=== PATIENT | female | born 1985 | race American Indian/Alaskan Native ===

== ENCOUNTER 2017-05-28 20:26 | Emergency (ER) | payer SELFPAY ==
[2017-05-28 23:09] VITALS: BP 122/88
[2017-05-28] MEDS ORDERED: VALIUM PO ONE (23:20)
[2017-05-28] MEDS ORDERED: ZOFRAN ODT PO ONE (23:20)
--- NOTE | 2017-05-28 23:24 | Emergency Department Report ---
Chief Complaint: Abdominal Pain Stated Complaint: N/V; ABD PAIN - HPI History of Present Illness: 31-year-old female past medical history possible diabetes, peripheral neuropathy , hypertension, alcohol abuse, alcohol withdrawal presents with complaint of shakiness and jittery sensation. Patient also complaining of chest pain with intermittent abdominal pain and nausea for the last 3 days. Last alcoholic beverage was this morning. Patient awake alert and oriented 3. States she came in because she could not control the nausea. - ROS Review of Systems: 3 days of nausea vomiting chest pain and hand shaking - Exam Vital Signs: Vital Signs 05/28/17 22:58 Temperature 98.6 F Pulse Rate 127 H Respiratory 18 Rate Blood Pressure 122/88 [Left] Physical Exam: Heart tachycardic, patient awake alert and oriented 3 MSE screening note: Focused history and physical exam performed. Due to findings the following was ordered: Screening Assessment/Plan/Differential Dx: Cardiac, abdominal pain, chest pain, possible alcohol withdrawal 1- This initial assessment/diagnostic orders/clinical plan/ treatment(s) is/are subject to change based on pt's health status, clinical progression and re- assessment by fellow clinical providers in the ED. Further treatment and workup at subsequent clinical provers discretion. Patient/guardians urged not to elope from ED as their condition may be serious if not clinically assessed and managed. 2-abdominal labs, ETOH, urinalysis, EKG, chest x-ray, urine drugs 3-I informed charge nurse Ms Mandujano of my concern that the patient may be withdrawing from alcohol to try to get pt into exam room quicker 4-Zofran and dose of Valium ED Disposition for MSE Condition: Stable Instructions: Abdominal Pain (ED)
[2017-05-28 23:55] LABS: Basophils % (Auto) 0.6 % (0.0-1.8); Eosinophils # (Auto) 0.1 K/mm3 (0.0-0.4); Eosinophils % (Auto) 1.4 % (0.0-4.3); Hematocrit 41.6 % (30.3-42.9); Hemoglobin 13.8 gm/dl (10.1-14.3); Lymphocytes # (Auto) 1.5 K/mm3 (1.2-5.4); Lymphocytes % (Auto) 30.4 % (13.4-35.0); Mean Corpuscular HGB Conc 33 % (30-34); Mean Corpuscular Hemoglobin 32 pg (28-32); Mean Corpuscular Volume 97 fl (79-97); Monocytes # (Auto) 0.3 K/mm3 (0.0-0.8); Monocytes % (Auto) 5.8 % (0.0-7.3); Platelet Count 133 K/mm3 (140-440); Red Blood Count 4.31 M/mm3 (3.65-5.03); Red Cell Distribution Width 18.9 % (13.2-15.2)
--- NOTE | 2017-05-29 00:16 | XRay Report ---
FINAL REPORT PROCEDURE: XR CHEST ROUTINE 2V TECHNIQUE: PA and lateral chest radiographs were obtained. CPT 93390 HISTORY: chest pain COMPARISON: No prior studies are available for comparison. FINDINGS: Heart: Normal. Mediastinum/Vessels: Normal. Lungs/Pleural space: Normal. Bony thorax: No acute osseous abnormality. Other: IMPRESSION: Negative examination.
[2017-05-29 00:19] LABS: BUN/Creatinine Ratio 9; Blood Urea Nitrogen 6 mg/dL (7-17); Calcium 9.3 mg/dL (8.4-10.2); Hemolysis Index 7; Lipase 59 units/L (13-60)
[2017-05-29 00:47] LABS: Bacteria,Urine 1+ /HPF (Negative); Bilirubin,Urine NEG (Negative); Blood,Urine LG (Negative); Calcium Oxalate Crystals,Urine 1+; Color,Urine Amber (Yellow); Mucus,Urine 3+ /HPF; Nitrite,Urine NEG (Negative)
[2017-05-29] MEDS ORDERED: NACL 0.9% 1000 ML 2,000 ML IV ONE (02:04)
[2017-05-29] MEDS ORDERED: ATIVAN IV ONE (02:04)
[2017-05-29] MEDS ORDERED: TORADOL IV ONE (03:32)
[2017-05-29] MEDS ORDERED: KEFLEX PO ONE (03:33)
--- NOTE | 2017-05-29 03:36 | Emergency Department Report ---
HPI - General Chief Complaint: Abdominal Pain Time Seen by Provider: 05/29/17 02:01 - HPI HPI: The patient is a 31-year-old female presents for evaluation of abdominal pain. The patient reports 2 days of abdominal pain, crampy in quality, concentrated to the lower abdomen, 8/10 in severity, exacerbated with movement. She also complains of nausea and nonbilious, nonbloody emesis, generalized myalgias, intermittent dizziness, and a nonproductive cough also for the past 2-3 days. The patient denies chest pain, dyspnea, syncope, diarrhea, blood in the stool, dark tarry stool, dysuria, hematuria, flank pain, genital discharge, inability to pass flatus. ED Past Medical Hx - Past Medical History Hx Hypertension: Yes Hx Congestive Heart Failure: No Hx Diabetes: No Hx Deep Vein Thrombosis: No Hx Renal Disease: No Hx Sickle Cell Disease: No Hx Seizures: No Hx Asthma: No Hx COPD: No Hx HIV: No - Surgical History Past Surgical History?: No - Social History Smoking Status: Never Smoker Substance Use Type: Alcohol - Medications Home Medications: Home Medications Medication Instructions Recorded Confirmed Last Taken Type Cephalexin [Keflex] 500 mg PO Q6HR #20 capsule 05/29/17 Unknown Rx Ibuprofen [Motrin] 800 mg PO Q8HR PRN #15 tablet 05/29/17 Unknown Rx Ondansetron [Zofran TAB] 4 mg PO Q8HR PRN #15 tablet 05/29/17 Unknown Rx traMADol [Ultram 50 MG tab] 50 mg PO Q6HR PRN #15 tablet 05/29/17 Unknown Rx ED Review of Systems ROS: Stated complaint: N/V; ABD PAIN Other details as noted in HPI Constitutional: denies: fever ENT: denies: throat or neck pain Respiratory: denies: cough, shortness of breath Cardiovascular: denies: chest pain Endocrine: denies unexplained weight loss or gain Gastrointestinal: reports abdominal pain, nausea Genitourinary: denies: dysuria Musculoskeletal: denies: leg swelling Skin: denies: rash Neurological: denies: headache Hematological/Lymphatic: denies: easy bleeding or easy bruising Psych: denies sadness or hopelessness Physical Exam - Physical Exam Vital Signs: Vital Signs 05/28/17 05/29/17 05/29/17 22:58 01:00 03:00 Temperature 98.6 F Pulse Rate 127 H 119 H 92 H Respiratory 18 Rate Blood Pressure 122/88 [Left] O2 Sat by Pulse 99 98 Oximetry Physical Exam: General: well-nourished, well-developed, no acute distress Head: Normocephalic, atraumatic Eyes: normal sclera ENT: Mucous membranes are pale and dry Neck: trachea midline, neck supple, No neck stiffness, no cervical adenopathy Respiratory: Breath sounds equal bilaterally, no wheezing, rales, or rhonchi Cardio: S1 and S2 present, no murmurs, rubs, gallops, capillary refill is delayed Abdomen: Normoactive bowel sounds, soft abdomen, suprapubic tenderness to palpation present, no rigidity, no guarding or rebound tenderness Musc: No pitting edema Skin: No rash Neuro: no facial drooping, normal speech Psych: Normal affect ED Course Vital Signs 05/28/17 05/29/17 05/29/17 22:58 01:00 03:00 Temperature 98.6 F Pulse Rate 127 H 119 H 92 H Respiratory 18 Rate Blood Pressure 122/88 [Left] O2 Sat by Pulse 99 98 Oximetry ED Medical Decision Making - Lab Data Result diagrams: 05/28/17 23:41 05/28/17 23:41 - Medical Decision Making The patient was seen and examined by myself. The patient is placed on a school lunch monitor and continuous pulse ox. On initial evaluation, the patient was found to be in no distress. Evaluation orders are placed. IV access is established and the patient is given 1 L normal saline fluid bolus and Zofran for nausea, and IV analgesic for pain. X-ray of the chest is negative for emergent disease process. Lab results revealed elevated urine WBC and otherwise were non-concerning including serum WBC, hemoglobin, hematocrit, electrolytes, renal function, LFTs, lipase, and neg preg test. The patient is given Keflex for treatment of her urinary tract infection. The patient was reevaluated and reported that their symptoms were markedly improved. The patient is stable for discharge with outpatient follow-up. The patient is given follow-up and return instructions. The patient expressed understanding and agreed with the plan. The patient is discharged in stable condition. Critical care attestation.: If time is entered above; I have spent that time in minutes in the direct care of this critically ill patient, excluding procedure time. ED Disposition Clinical Impression: Acute UTI (urinary tract infection), Upper respiratory infection, acute, Dehydration, Myalgia Disposition: TO HOME OR SELFCARE Is pt being admited?: No Does the pt Need Aspirin: No Condition: Stable Instructions: Urinary Tract Infection in Women (ED), Upper Respiratory Infection (ED), Viral Syndrome (ED), Abdominal Pain (ED), Musculoskeletal Pain ( ED) Prescriptions: Cephalexin [Keflex] 500 mg PO Q6HR #20 capsule Ibuprofen [Motrin] 800 mg PO Q8HR PRN #15 tablet PRN Reason: Pain Ondansetron [Zofran TAB] 4 mg PO Q8HR PRN #15 tablet PRN Reason: Nausea traMADol [Ultram 50 MG tab] 50 mg PO Q6HR PRN #15 tablet PRN Reason: Pain Referrals: LEIGH YOUNGER MD [Primary Care Provider] - 3-5 Days Time of Disposition: 03:35
== END 2017-05-29 04:26 | disposition home or self-care (01) ==
LOC: ED 20:26
DX: N39.0 Urinary tract infection, site not specified (principal); J06.9 Acute upper respiratory infection, unspecified; E86.0 Dehydration; I10 Essential (primary) hypertension
CPT/HCPCS: 36415; 71046; 80048; 81001; 82150; 82550; 83690; 84484; 84703; 85025; 93005; 93010; 96361; 96374; 99284; G0480; J2060; J7030; 80320; Q0162